=== PATIENT | female | born 1960 | race Two or more races ===

== ENCOUNTER → 2019-05-11 | Day surgery (SDC) | payer OTHER ==
[~2019-05-11] MED LIST: CARAFATE1 GM PO; CLONAZEPAM0.125 MG PO; COMPLETE OMEGA1 EACH PO; FLEXERIL; LEVAPRO PO; MULTIPLE VITAM1 EACH PO; PEPCID40 MG PO; PERCOCET 5-3251 EACH PO; PLAVIX75 MG PO; PROBIOTIC1 EAC2 PO; PROTONIX40 M1 PO; XYZAL2.5 MG/5 M PO
== END | disposition home or self-care (01) ==
LOC: ADM 05-04 07:15 → CIR.AMB 06:36
DX: D35.1 Benign neoplasm of parathyroid gland (principal)